=== PATIENT | female | born 1970 | race Caucasian/White ===

== ENCOUNTER 2016-11-16 13:37 | Emergency (ER) | payer OTHER | END 2016-11-16 16:29 | disposition home or self-care (01) | LOC: ER 13:37 | DX: M70.32 Other bursitis of elbow, left elbow (principal); S52.502A Unspecified fracture of the lower end of left radius, initial encounter for closed fracture; X58.XXXA Exposure to other specified factors, initial encounter; I10 Essential (primary) hypertension; F17.210 Nicotine dependence, cigarettes, uncomplicated; Z79.899 Other long term (current) drug therapy | CPT/HCPCS: 73080; 96374; 99070; 99283-25 ==